=== PATIENT | female | born 1950 | race Caucasian/White ===

== ENCOUNTER 2020-01-23 12:34 | Inpatient (IN) | payer BC, OTHER ==
[~2020-01-23] VITALS: Ht 157.5 cm; Wt 50.8 kg
[2020-01-23 13:07] LABS: BASOPHILS % (AUTO) 0.7 % (0.0-2.0); EOSINOPHILS % (AUTO) 0.5 % (0.0-7.0); HEMATOCRIT 44.6 % (31.2-41.9); HEMOGLOBIN 14.8 g/dL (10.9-14.3); LYMPHOCYTES # (AUTO) 0.9 K/uL (20.0-40.0); MEAN CORPUSCULAR HEMOGLOBIN 29.9 uug (24.7-32.8); MEAN CORPUSCULAR HGB CONC 33 g/dL (32.3-35.6); MEAN CORPUSCULAR VOLUME 90.1 fL (75.5-95.3); MONOCYTES # (AUTO) 0.5 K/uL (2.0-10.0); MONOCYTES % (AUTO) 7.4 % (0.0-11.0); NEUTROPHILS # (AUTO) 5.1 K/uL (1.8-8.9); NEUTROPHILS % (AUTO) 77.4 % (38.5-71.5); PLATELET COUNT (AUTO) 218 K/uL (179-408); RED BLOOD CELL COUNT(AUTO) 4.95 MIL/uL (3.63-4.92); WHITE BLOOD COUNT (AUTO) 6.6 K/uL (3.8-11.8)
[2020-01-23] MEDS ORDERED: MULT-451 PO (13:10)
[2020-01-23 13:15] LABS: CARBON DIOXIDE 27 mmol/L (21-32); CHLORIDE 109 mmol/L (98-107); CREATININE 0.9 mg/dL (0.6-1.3); GLUCOSE 108 mg/dL (74-106); POTASSIUM 3.4 mmol/L (3.5-5.1); UREA NITROGEN, BLOOD 12 mg/dL (7-18)
[2020-01-23] MEDS ORDERED: ALBU6.7H9 INH (13:15)
[2020-01-23 13:29] LABS: ALKALINE PHOSPHATASE 94 U/L (50-136); ASPARTATE AMINOTRANSFERASE 30 U/L (15-37); BILIRUBIN,DIRECT 0.2 mg/dL (0.0-0.2); TOTAL PROTEIN, SERUM 7.3 g/dL (6.4-8.2)
--- NOTE | 2020-01-23 13:30 | NUR ---
PT AMBULATED TO BATHROOM WITH STEADY GAIT. URINE SAMPLE SENT. HOSPITAL SANDWICH PROVIDED FOR PT. PT EATING WITH GOOD APETITE.
[2020-01-23 13:32] LABS: ETHANOL < 3 MG/DL (0-0)
[2020-01-23 13:33] LABS: ACETAMINOPHEN < 2.0 ug/mL (10-30); ALANINE AMINOTRANSFERASE < 6 U/L (14-59)
[2020-01-23 14:09] LABS: *AMPHETAMINE, URINE NEGATIVE (NEGATIVE); *BARBITURATE, URINE NEGATIVE (NEGATIVE); *CANNABINOID, URINE NEGATIVE (NEGATIVE); *COCCAINE, URINE NEGATIVE (NEGATIVE); *OPIATE, URINE NEGATIVE (NEGATIVE); *PHENCYCLIDINE SCREEN,URINE NEGATIVE (NEGATIVE)
[2020-01-23 14:33] LABS: *BILIRUBIN,URIN NEGATIVE (NEGATIVE); *CLARITY,URINE CLOUDY (CLEAR); *COLOR,URINE YELLOW (YELLOW); *KETONES,URINE 2+ (NEGATIVE); *UROBILINOGEN,URINE 0.2 E.U./dl (NORMAL); LEUKOCYTE ESTERASE ,URINE 1+ (NEGATIVE); NITRITE, URINE POSITIVE (NEGATIVE); UGLUCOSE NEGATIVE (NEGATIVE)
[2020-01-23 14:45] LABS: *BLOOD, URINE TRACE (NEGATIVE)
[2020-01-23 14:48] LABS: BACTERIA,URINE MANY /HPF (NONE SEEN); SQUAMOUS EPITHELIAL CELL,UR FEW /HPF (NONE SEEN); WBC,URINE 20-50 /HPF (0-3)
[2020-01-23] MEDS ORDERED: NITROFURANTOIN/NITROFURAN MAC 100 MG CAPSULE PO ONE (16:45)
--- NOTE | 2020-01-23 17:07 | NUR ---
transfered pt to [facility] in stable condition. pt remained calm/resting the whole er stay.
[2020-01-23 17:15] VITALS: BP 158/94
--- NOTE | 2020-01-23 17:30 | NUR ---
Pt report received from FIRE MANAGEMENT TECHNICIAN at 1645hr. Pt arrived on the unit via gurney. Pt assessed, no acute distress, denies pain, no SOB evident. VS stable 158/94, 101, 18 RR, 99 temp, denies pain. Pt refused photo of her face for chart. Physical assessment done, no skin integrity issues to report, and Pt assisted to change into gown. Personal belongings accounted for and collected for contraband. Pt's son, Thien, identified as Pt's number one point of contact and notified of transfer, updated on Pt status. Pt oriented to the unit and room 140B. All comfort and safety needs attended to at this time. Will continue to monitor and endorse to third shift lieutenant nurse.
[2020-01-23] MEDS ORDERED: NITROFURANTOIN/NITROFURAN MAC 100 MG CAPSULE ONE (17:33)
[2020-01-23] MEDS ORDERED: MAGNESIUM HYDROXIDE 30 ML LIQUID UDC PO PRN (17:45)
[2020-01-23] MEDS ORDERED: MAG HYDROX/AL HYDROX/SIMETH 30 ML LIQUID UDC PO PRN (17:45)
[2020-01-23] MEDS ORDERED: ACETAMINOPHEN 325 MG TABLET PO PRN (17:45)
[2020-01-23 20:10] VITALS: BP 156/83
[2020-01-23] MEDS: MULTIVIT, IRON, MIN NO. 8, FA TABLET PO SCH (22:00)
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
[2020-01-23] MEDS ORDERED: ALBUTEROL SULFATE 2.5 MG/3 ML NEBU NEB PRN (22:30)
--- NOTE | 2020-01-24 06:00 | NUR ---
slept 7 hours. continues to sleep. no distress noted.
[2020-01-24 07:32] LABS: BILIRUBIN,TOTAL 1.1 mg/dL (0.2-1.0); POTASSIUM 3.3 mmol/L (3.5-5.1); TOTAL PROTEIN, SERUM 7.2 g/dL (6.4-8.2)
[2020-01-24 07:51] VITALS: BP 147/84
[2020-01-24] MEDS: MULTIVIT, IRON, MIN NO. 8, FA TABLET PO SCH (08:41)
--- NOTE | 2020-01-24 10:26 | NUR ---
HAYLEE ZHANG Note: HAYLEE spoke with Yaa director case at [facility] ([phone]) patient is authorized from 01/23/2020 - 01/30/2020. Review due on 01/30/2020. Waiting for authorization #. Addendum: 01/27/20 at 1103 by NELSON THOMAS Trang # [id number]
[2020-01-24] MEDS ORDERED: DEXTROSE 50% 50 ML DISP.SYRIN IV PRN (11:45)
[2020-01-24] MEDS ORDERED: POTASSIUM CHLORIDE 20 MEQ TAB.PRT.SR PO ONE (11:45)
[2020-01-24] MEDS: METFORMIN HCL 500 MG TABLET PO SCH ×2 (12:12→17:01)
[2020-01-24] MEDS: METOPROLOL TARTRATE 25 MG TABLET PO SCH ×2 (12:13→21:00)
[2020-01-24 12:20] LABS: THYROID STIMULATING HORMONE 2.227 mIU/mL (0.358-3.740)
[2020-01-24] MEDS: CEphaleXIN 500 MG CAPSULE PO SCH ×3 (13:38→22:00)
--- NOTE | 2020-01-24 15:13 | NUR ---
Patient refuse cephalexin 500mg for UTI Patient noted being suspicious with medication. Patient verbalize that she donot like side effects of it despite of encouragement and education. Given explanation to patient. MD aware. Daughter notified. not in distress. Patient seen and examined by MD Blunt via webcam. no new medication prescribe yet. will continue monitor for safety.
[2020-01-24 15:47] VITALS: BP 155/69
[2020-01-24] MEDS: BLOOD SUGAR DIAGNOSTIC 1 EACH STRIP VI SCH ×2 (16:09→21:00)
[2020-01-24] MEDS: OLANZAPINE ZYDIS 5 MG TAB.RAPDIS PO SCH (16:10)
--- NOTE | 2020-01-24 16:11 | NUR ---
Patient refuse medication despite of encouragement and education.
[2020-01-24 20:25] VITALS: BP 150/78
[2020-01-24] MEDS: ATORVASTATIN 10 MG TABLET PO SCH (21:00)
--- NOTE | 2020-01-24 22:00 | NUR ---
received to care, lying in bed, pleasant upon approach. refused all medications and blood sugar check. as of 2200, she appears to be asleep. no distress noted. will continue to monitor closely.
[2020-01-25] MEDS: CEphaleXIN 500 MG CAPSULE PO SCH ×3 (06:00→21:25)
--- NOTE | 2020-01-25 06:00 | NUR ---
slept 6 hours. continues to sleep. no distress noted.
[2020-01-25] MEDS: BLOOD SUGAR DIAGNOSTIC 1 EACH STRIP VI SCH ×4 (06:24→21:00)
[2020-01-25 07:30] VITALS: BP 123/78
[2020-01-25] MEDS: METFORMIN HCL 500 MG TABLET PO SCH ×3 (08:00→17:09)
[2020-01-25] MEDS: MULTIVIT, IRON, MIN NO. 8, FA TABLET PO SCH (08:17)
[2020-01-25] MEDS: CYANOCOBALAMIN 1000 MCG/ML VIAL IM SCH (09:00)
[2020-01-25] MEDS: OLANZAPINE ZYDIS 5 MG TAB.RAPDIS PO SCH ×2 (09:00→16:33)
[2020-01-25] MEDS: METOPROLOL TARTRATE 25 MG TABLET PO SCH ×2 (09:00→21:00)
--- NOTE | 2020-01-25 09:44 | NUR ---
GPS: received patient AOx3-4, patient calm and walking around the unit, patient verbalizes understanding on why she was here, patient no distress at this time, patient selectively compliant with medication, reading labels of the medication , patient paranoid and says that shes here for psych eval and that "they are investigating her because of the residential", patient speak and understand tagalog very well , so the telegraphic typewriter installer spoke with her in the same language and patienttold that shes under investigation and rather not take medication since she is not psychotic, made aware, will continue monitor
[2020-01-25 10:39] VITALS: BP 123/78
--- NOTE | 2020-01-25 13:20 | NUR ---
HAYLEE Initial Discharge Note: Patient currently resides at home with her and daughter Keesha ([phone]) [address] [place] [address]. Patient's daughter is involved in patient's treatment and discharge plan. Patient will be returning home upon discharge. HAYLEE will continue to work with patient, family, and MD to ensure a safe and proper discharge plan.
--- NOTE | 2020-01-25 13:21 | NUR ---
SW Family Contact: Spoke with patient's daughter, Keesha ([phone]) regarding patient's treatment plan and discharge plan. Keesha shared with this procedure writer that the patient has one previous psychiatric hospitalization in 2018. Keesha stated that the patient refuses to take medications at home and is non compliant with going to see a primary doctor or psychiatrist. Keesha stated they are trying to file for conservatorship over the patient but have no been successful yet. Keesha shared they would like resources upon discharge for the patient which this procedure writer assured will be provided.
--- NOTE | 2020-01-25 15:39 | NUR ---
patient continously refused her medication, seen by Dr. Blunt via [place] [facility], patient still refusing her accucheck, and antibiotics and Psychotropic medications, even after explaining the benefits of the treatment, patient showing that shes intlligently enough to understand but still refused , filed CELESTE and 5250 hold , patient calm and no distress at this time, will continue monitor
[2020-01-25 16:00] VITALS: BP 149/83
--- NOTE | 2020-01-25 18:55 | NUR ---
Patient continuously refused all medication, paranoid and delusional, filed a RIESE patient aware, will continue monitor
[2020-01-25 20:21] VITALS: BP 150/75
[2020-01-25] MEDS: ATORVASTATIN 10 MG TABLET PO SCH (21:00)
--- NOTE | 2020-01-25 22:00 | NUR ---
received to care, isolative, but calm and pleasant upon approach. mostly stayed in her room, but was observed several times in the tv room, with peers. continues to refuse her accucheck, and all medications, including antibiotics and Psychotropic medications, even after explaining the risks and benefits of compliance vs non compliance. stated that she is not a diabetic, does not have a urinary infection, nor does she have a psychiatric problem. appears distracted by internal stimuli, but denies ant psychotic sx. as of 2199, she appears to be asleep. no distress noted. will continue to monitor closely.
[2020-01-26] MEDS: CEphaleXIN 500 MG CAPSULE PO SCH ×3 (06:00→20:56)
--- NOTE | 2020-01-26 06:00 | NUR ---
slept 5.5 hours. continues to sleep. no distress noted.
[2020-01-26] MEDS: BLOOD SUGAR DIAGNOSTIC 1 EACH STRIP VI SCH ×4 (06:22→20:54)
--- NOTE | 2020-01-26 06:33 | NUR ---
refused AM keflex, and acchcheck. she denies any sx of hypo/hyper glycemia. no distress noted.
[2020-01-26 07:30] VITALS: BP 147/69
[2020-01-26] MEDS: METFORMIN HCL 500 MG TABLET PO SCH ×2 (08:00→18:00)
[2020-01-26] MEDS: METOPROLOL TARTRATE 25 MG TABLET PO SCH ×3 (09:00→20:55)
[2020-01-26] MEDS: CYANOCOBALAMIN 1000 MCG/ML VIAL IM SCH (09:00)
[2020-01-26] MEDS: OLANZAPINE ZYDIS 5 MG TAB.RAPDIS PO SCH ×2 (09:00→17:00)
[2020-01-26] MEDS: MULTIVIT, IRON, MIN NO. 8, FA TABLET PO SCH (09:00)
[2020-01-26 16:00] VITALS: BP 133/71
--- NOTE | 2020-01-26 19:50 | NUR ---
In bed, awake, response appropriately to questions. Denies any pain/discomforts. Safety measures and fall precaution maintained. Continue care as planned.
[2020-01-26] MEDS: ATORVASTATIN 10 MG TABLET PO SCH ×2 (20:40→20:55)
--- NOTE | 2020-01-26 21:00 | NUR ---
Patient refused all due meds and accu check, claiming that that's not her medications, that we have another Ellyn in the floor, has no UTI, not diabetic so she's not taking any of those. Charge nurse made aware.
[2020-01-26 21:25] VITALS: BP 159/70
[2020-01-27] MEDS: BLOOD SUGAR DIAGNOSTIC 1 EACH STRIP VI SCH ×4 (05:44→20:51)
[2020-01-27] MEDS: CEphaleXIN 500 MG CAPSULE PO SCH ×3 (05:44→21:02)
--- NOTE | 2020-01-27 06:24 | NUR ---
Slept 7.15 hours. No complaint presented all night.Continue to refused due meds. Non-compliant to plan of care.. All needs attended and met. No significant event reported. VS stable
[2020-01-27 07:30] VITALS: BP 135/81
[2020-01-27] MEDS: METFORMIN HCL 500 MG TABLET PO SCH ×2 (08:00→17:04)
[2020-01-27] MEDS: MULTIVIT, IRON, MIN NO. 8, FA TABLET PO SCH ×2 (08:34→09:00)
--- NOTE | 2020-01-27 08:50 | NUR ---
GPS: received patient Aox2-3, patient delusional and paranoid at this time, refused medications , even the vitamins saying shes fine , patient aware of the benefits of the medication, responding to internal stimuli, will continue monitor
[2020-01-27] MEDS: OLANZAPINE ZYDIS 5 MG TAB.RAPDIS PO SCH ×3 (09:00→20:49)
[2020-01-27] MEDS: CYANOCOBALAMIN 1000 MCG/ML VIAL IM SCH (09:00)
[2020-01-27] MEDS: METOPROLOL TARTRATE 25 MG TABLET PO SCH ×2 (09:00→20:50)
[2020-01-27] MEDS: HALOPERIDOL LACTATE 5 MG/1 ML VIAL IM PRN (13:40)
[2020-01-27 16:00] VITALS: BP 146/76
--- NOTE | 2020-01-27 16:05 | NUR ---
Social Work Individual Therapy: pupil personnel worker met with pt for brief counseling to address pt's paranoid thought process. Pt continues to present as delusional. Pt unable to fully engage in session. SW encouraged pt to attend group.
--- NOTE | 2020-01-27 17:45 | NUR ---
patient on RIESE, refused oral medication, RIESE protocol given via IM , patient tolerated the medication, patient contious to be paranoid and delusional
[2020-01-27 20:32] VITALS: BP 137/73
[2020-01-27] MEDS: ATORVASTATIN 10 MG TABLET PO SCH (20:51)
--- NOTE | 2020-01-27 21:48 | NUR ---
resting in bed upon initial rounds. AAOx 3-4 Ambulatory Refused meds, but was able to take her zyprexa and lopressor. . No signs of agitation or restlessness noted. Will monitor patient. VSS. Attended to needs. VSS.
[2020-01-28] MEDS: CEphaleXIN 500 MG CAPSULE PO SCH ×3 (05:45→21:00)
--- NOTE | 2020-01-28 06:12 | NUR ---
slept well most of the shift. slept 8hours and 15 minutes. all needs attended and met. patient refused 6am Keflex and accucheck. Denies any pain nor any discomfort. VSS.
[2020-01-28] MEDS: BLOOD SUGAR DIAGNOSTIC 1 EACH STRIP VI SCH ×4 (06:43→20:56)
[2020-01-28 07:30] VITALS: BP 119/68
[2020-01-28] MEDS: METFORMIN HCL 500 MG TABLET PO SCH ×2 (08:00→17:52)
[2020-01-28] MEDS: CYANOCOBALAMIN 1000 MCG/ML VIAL IM SCH (09:00)
[2020-01-28] MEDS: METOPROLOL TARTRATE 25 MG TABLET PO SCH ×2 (09:00→20:43)
[2020-01-28] MEDS: OLANZAPINE ZYDIS 5 MG TAB.RAPDIS PO SCH ×2 (09:00→21:10)
[2020-01-28] MEDS: MULTIVIT, IRON, MIN NO. 8, FA TABLET PO SCH (09:00)
[2020-01-28] MEDS: HALOPERIDOL LACTATE 5 MG/1 ML VIAL IM PRN (09:58)
[2020-01-28 16:00] VITALS: BP 131/69
[2020-01-28 20:09] VITALS: BP 124/56
[2020-01-28] MEDS: ATORVASTATIN 10 MG TABLET PO SCH (20:56)
--- NOTE | 2020-01-28 21:15 | NUR ---
Received pt watching tv in the activity room. No acute distress noted. Denies pain/ discomfort. Noted pt to be paranoid. Denies suicidal ideation. Pt initially refusing medications. Only took lopressor. Risks and benefits explained. Offered x3. Still refused. Pt stated that she does not have any infection and she does not take any of these medications. Pt educated about the riese protocol and gave copy to the pt. Was about to give Haldol IM when pt changed her mind and stated that she will take the zyprexa. Safety measures maintained. Will continue to monitor.
[2020-01-29] MEDS: CEphaleXIN 500 MG CAPSULE PO SCH ×3 (06:00→22:00)
[2020-01-29] MEDS: BLOOD SUGAR DIAGNOSTIC 1 EACH STRIP VI SCH ×4 (06:30→20:39)
[2020-01-29 07:55] VITALS: BP 135/61
[2020-01-29] MEDS: METFORMIN HCL 500 MG TABLET PO SCH ×2 (08:00→17:20)
[2020-01-29] MEDS: CYANOCOBALAMIN 1000 MCG/ML VIAL IM SCH (08:23)
[2020-01-29] MEDS: METOPROLOL TARTRATE 25 MG TABLET PO SCH ×2 (08:24→20:28)
[2020-01-29] MEDS: MULTIVIT, IRON, MIN NO. 8, FA TABLET PO SCH (08:25)
[2020-01-29] MEDS: OLANZAPINE ZYDIS 5 MG TAB.RAPDIS PO SCH ×2 (08:25→20:29)
--- NOTE | 2020-01-29 11:27 | NUR ---
Patient awake and alert this am but very delusional with an aggressive tone. Explained to patient about the medications ordered and showed the wrappers per request. Patient denies being diabetic and refuses all Accu checks or oral medications. Patient also refuses IM B12 shots and antibiotics. Despite the teaching done on importance of treating the infection, patient refuses to believe she has a UTI. Dr. Terrazas aware. Patient also has a Riese, but was compliant with the oral psychiatric medication this am after much encouragement. Continuing to have reality based conversations, reorient patient to the situation and educate on benefits of medication compliance. Monitoring for any behavior escalation.
[2020-01-29 15:44] VITALS: BP 108/43
[2020-01-29 20:00] VITALS: BP 152/54
[2020-01-29] MEDS: ATORVASTATIN 10 MG TABLET PO SCH (20:27)
[2020-01-29] MEDS: INSULIN REGULAR, HUMAN 300 UNIT/3 ML VIAL SQ PRN (20:44)
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
[2020-01-30 07:30] VITALS: BP 129/59
[2020-01-30] MEDS: BLOOD SUGAR DIAGNOSTIC 1 EACH STRIP VI SCH ×4 (07:30→20:36)
[2020-01-30] MEDS: CYANOCOBALAMIN 1000 MCG/ML VIAL IM SCH (09:00)
[2020-01-30] MEDS: MULTIVIT, IRON, MIN NO. 8, FA TABLET PO SCH (09:22)
[2020-01-30] MEDS: METOPROLOL TARTRATE 25 MG TABLET PO SCH ×2 (09:22→20:26)
[2020-01-30] MEDS: METFORMIN HCL 500 MG TABLET PO SCH ×2 (09:22→17:10)
[2020-01-30] MEDS: OLANZAPINE ZYDIS 5 MG TAB.RAPDIS PO SCH ×2 (09:22→20:35)
--- NOTE | 2020-01-30 12:11 | NUR ---
HAYLEE UR Note: Auth # [id number] HAYLEE spoke with Yaa social work case manager at [facility] ([phone]) and provided live review of clinical updates. Authorized 01/28-01/29. Review due 01/31/20.
--- NOTE | 2020-01-30 12:53 | NUR ---
HAYLEE Family Contact: HAYLEE spoke with patient's son, Thien Barnett ([phone]) regarding patient's current condition. Thien was concerned about patient's discharge planning and he stated that they are looking for facilities for the patient after discharge. HAYLEE informed that patient is now on a Riese is slowly complying with care. HAYLEE also informed that patient' might be discharge this week and Thien will arrange for transportation.
[2020-01-30 15:35] VITALS: BP 164/76
--- NOTE | 2020-01-30 16:34 | NUR ---
Patient on reised, compliant with all medication , asked to have a shower,ambulating and safe care.
--- NOTE | 2020-01-30 19:35 | NUR ---
Received patient in room, quietly lying in her bed. Not in distress. denies any pain/discomforts at this time. No agitation/restlessness noted. Safety measures and fall precaution maintained. Continue care as planned. Addendum: 01/30/20 at 2113 by KIM MATOS RN Wrong patient.
--- NOTE | 2020-01-30 19:40 | NUR ---
Received patient awake, alert and orient x 3, calm, cooperative and pleasant at this time. Denies any pain/discomforts. Safety measures and fall precaution maintained. Continue care as planned.
[2020-01-30] MEDS: ATORVASTATIN 10 MG TABLET PO SCH (20:35)
[2020-01-30 20:39] VITALS: BP 139/68
--- NOTE | 2020-01-30 20:43 | NUR ---
BS 194mg/dl. Patient denies s/s of hyperglycemia, claiming that she had a lot of sweet intake today. Refused taking her Zyprexa , Insulin coverage and Lipitor. Charge nurse made aware.
--- NOTE | 2020-01-31 05:55 | NUR ---
Shift End Report: Slept good. VS stable. No complaint presented all night. Ambulatory with steady gait. No significant event reported all night,
[2020-01-31 06:29] VITALS: BP 146/70
--- NOTE | 2020-01-31 06:46 | NUR ---
Slept 6.0 hours.
[2020-01-31 07:30] VITALS: BP 129/49
[2020-01-31] MEDS: BLOOD SUGAR DIAGNOSTIC 1 EACH STRIP VI SCH ×4 (07:30→20:59)
[2020-01-31] MEDS: METFORMIN HCL 500 MG TABLET PO SCH ×2 (08:00→17:10)
[2020-01-31] MEDS: MULTIVIT, IRON, MIN NO. 8, FA TABLET PO SCH (08:33)
[2020-01-31] MEDS: OLANZAPINE ZYDIS 5 MG TAB.RAPDIS PO SCH ×2 (08:33→20:43)
[2020-01-31] MEDS: METOPROLOL TARTRATE 25 MG TABLET PO SCH ×2 (08:34→20:42)
[2020-01-31] MEDS: CYANOCOBALAMIN 1000 MCG/ML VIAL IM SCH (08:48)
--- NOTE | 2020-01-31 13:09 | NUR ---
HAYLEE UR Note: Auth # [id number] HAYLEE spoke with Yaa classification case manager at [facility] ([phone]) and provided live review of clinical updates. Authorized 01/30-02/01. Review due 02/02/20.
[2020-01-31 15:10] VITALS: BP 121/60
--- NOTE | 2020-01-31 15:20 | NUR ---
Social Work Individual Therapy: laceworker met with patient for brief counseling to address pt's paranoid thought process. Patient continues to remain isolative and guarded. Patient presents paranoid and refuses to engage in a meaningful conversation with this account underwriter. Patient chapa snot make eye contact with this account underwriter and physically turned the other way.
--- NOTE | 2020-01-31 16:15 | NUR ---
patient on riesed compliant with am medication, still refused for BS check,.
[2020-01-31] MEDS: ATORVASTATIN 10 MG TABLET PO SCH (20:42)
[2020-01-31 21:02] VITALS: BP 157/80
--- NOTE | 2020-01-31 22:00 | NUR ---
received to care, sitting in her room, pleasant, but guarded, upon approach. initially refused all medications, but eventually agreed to take all her PO meds, with encouragement. she continues to refuse her blood sugar check, but remains asymptomatic. as of 2199, she appears to be asleep. no distress noted. will continue to monitor closely.
--- NOTE | 2020-02-01 06:00 | NUR ---
slept 7.5 hours. continues to sleep. no distress noted.
[2020-02-01] MEDS: BLOOD SUGAR DIAGNOSTIC 1 EACH STRIP VI SCH ×4 (06:27→21:00)
--- NOTE | 2020-02-01 06:27 | NUR ---
is now awake. refused blood sugar check.
[2020-02-01 07:30] VITALS: BP 118/64
[2020-02-01] MEDS: MULTIVIT, IRON, MIN NO. 8, FA TABLET PO SCH (08:53)
[2020-02-01] MEDS: METFORMIN HCL 500 MG TABLET PO SCH ×2 (08:53→17:34)
[2020-02-01] MEDS: OLANZAPINE ZYDIS 5 MG TAB.RAPDIS PO SCH (08:54)
[2020-02-01] MEDS: METOPROLOL TARTRATE 25 MG TABLET PO SCH ×2 (08:55→21:00)
[2020-02-01] MEDS ORDERED: HALOPERIDOL LACTATE 5 MG/1 ML VIAL IM PRN (10:15)
--- NOTE | 2020-02-01 10:20 | NUR ---
HAYLEE Family Contact: SW spoke with patient's daughter Keesha Barnett ([phone]) regarding patient's current condition and discharge plans. Keesha was concerned about the patient's compliance with treatment when she return home. This financial writer stated that it is beyond our control what the patient will do when she returns home but to encourage the patient to continue to follow up with outpatient psychiatrist. Keesha stated she will come to [place] the patient on Thursday at 2pm and take her home.
--- NOTE | 2020-02-01 13:06 | NUR ---
patient on riesed compliant with am medication,patient remains paranoia and delusional about psych.medication,denies she is not belong here.
[2020-02-01 16:00] VITALS: BP 129/73
[2020-02-01] MEDS: HALOPERIDOL 5 MG TABLET PO SCH (16:21)
[2020-02-01] MEDS ORDERED: HALOPERIDOL 2 MG TABLET PO SCH (17:00)
[2020-02-01] MEDS: ATORVASTATIN 10 MG TABLET PO SCH (21:00)
[2020-02-01 21:26] VITALS: BP 135/55
--- NOTE | 2020-02-01 22:00 | NUR ---
received to care, sitting in her room, pleasant, but guarded, upon approach. refused all medications, and her blood sugar check, but remains asymptomatic. as of 2200, she appears to be asleep. no distress noted. will continue to monitor closely.
--- NOTE | 2020-02-02 06:00 | NUR ---
slept 7.0 hours total. continues to sleep. no distress noted.
[2020-02-02] MEDS: BLOOD SUGAR DIAGNOSTIC 1 EACH STRIP VI SCH ×4 (06:12→21:00)
[2020-02-02 07:30] VITALS: BP 118/63
[2020-02-02] MEDS: METFORMIN HCL 500 MG TABLET PO SCH ×2 (08:00→18:00)
[2020-02-02] MEDS: MULTIVIT, IRON, MIN NO. 8, FA TABLET PO SCH (08:29)
[2020-02-02] MEDS: INSULIN REGULAR, HUMAN 300 UNIT/3 ML VIAL SQ PRN ×3 (08:34→16:12)
[2020-02-02] MEDS: HALOPERIDOL 5 MG TABLET PO SCH ×2 (08:35→18:07)
[2020-02-02] MEDS: METOPROLOL TARTRATE 25 MG TABLET PO SCH ×2 (08:35→21:00)
[2020-02-02] MEDS ORDERED: HALOPERIDOL LACTATE 5 MG/1 ML VIAL IM PRN (13:45)
--- NOTE | 2020-02-02 15:01 | NUR ---
HAYLEE UR Note: Auth # [id number] HAYLEE spoke with Yaa binder caser at [facility] ([phone]) and provided live review of clinical updates. Authorized until tomorrow 02/03/20. Review due 02/03/20.
--- NOTE | 2020-02-02 15:01 | NUR ---
SW Family Contact: SW spoke with patient's daughter Keesha Barnett ([phone]) discussing discharge planning and emailed her patient's aftercare appointments for psychiatry and primary referrals.
[2020-02-02 16:00] VITALS: BP 141/71
--- NOTE | 2020-02-02 18:38 | NUR ---
EOS note: No significant acute changes this shift. Pt alert, responsive to verbal and tactile stimuli. Pt. pleasant but guarded. Pt non-compliant with medications including blood sugar check. Yana SONG made aware of pt. refusal of meds and blood glucose check, also made aware that pt. has been refusing keflex in the previous days. Dr. Blunt aware of pt. refusal of Haldol, MD order to increase Haldol to 5 mg as pt. remain paranoid and delusional. Pt. received Haldol 5 mg IM for refusal of PO haldol in AM. Pt. on RIESED. Pt. compliant with taking PO Haldol at dinner time after several discussion of risk and benefits of medication. Pt for possible discharge tomorrow pending authorization from her insurance per . Frequent rounding done. Safety measures in place. Will endorse to oncoming shift.
[2020-02-02 20:00] VITALS: BP 132/93
[2020-02-02] MEDS: ATORVASTATIN 10 MG TABLET PO SCH (21:00)
--- NOTE | 2020-02-03 06:00 | NUR ---
slept 6.5 hours, total. continues to sleep. no distress noted.
[2020-02-03] MEDS: BLOOD SUGAR DIAGNOSTIC 1 EACH STRIP VI SCH ×4 (06:33→20:55)
--- NOTE | 2020-02-03 06:33 | NUR ---
refused AM blood sugar check. remains asymptomatic
[2020-02-03 07:30] VITALS: BP 142/71
[2020-02-03] MEDS: METFORMIN HCL 500 MG TABLET PO SCH ×2 (08:49→18:22)
[2020-02-03] MEDS: HALOPERIDOL 5 MG TABLET PO SCH ×2 (08:49→18:23)
[2020-02-03] MEDS: MULTIVIT, IRON, MIN NO. 8, FA TABLET PO SCH (08:49)
[2020-02-03] MEDS: METOPROLOL TARTRATE 25 MG TABLET PO SCH ×2 (08:54→20:38)
--- NOTE | 2020-02-03 09:37 | NUR ---
HAYLEE UR Note: Auth # [id number] HAYLEE left a message for Emi newly assigned insurance case manager at [facility] ([phone]) and provided updated clinicals for continues stay this morning on her voicemail and waiting for a call back.
--- NOTE | 2020-02-03 09:57 | NUR ---
HAYLEE UR Note: Auth # [id number] HAYLEE spoke with Emi nath assigned rehabilitation case coordinator at [facility] ([phone]) and patient's is authorized for stay until Thursday02/06/20. Review due on 02/06/20.
--- NOTE | 2020-02-03 11:00 | NUR ---
Patient is AAO x 2, verbally able to express needs. No acute distress. Patient noted verbalizing there are many Catherines, her sisters are trying to steal her identity. Explained to patient there is only one Ellyn in the unit. Patient also paranoid about her meds stating the did not order the medications we were giving. Explained to patient the necessity and benefits of her ordered medications, Patient agreed to take meds and tolerated well. Will continue with care.
--- NOTE | 2020-02-03 12:00 | NUR ---
patient agreed for her BS to be checked.
[2020-02-03] MEDS ORDERED: HALOPERIDOL DECANOATE 50 MG/1 ML AMPUL IM ONE (14:00)
[2020-02-03 15:18] VITALS: BP 120/53
--- NOTE | 2020-02-03 16:00 | NUR ---
Explained to patient that she has an order for Haldol Decanoate IM injecation per order. Patient refused stating the " has a wrong patient. Do you know how many Catherines there are; we have 4 in this building alone, so I am not going to take it." Explained to patient that medication needs to be administered. patient agreed to take medication with a help of secutiry and assigned SUPERVISOR PARTICLEBOARD, was note combative and tolerated medication well. Patient stated " I will see you in court". Safety measures in place and will continue with care.
--- NOTE | 2020-02-03 17:43 | NUR ---
Patient administered due medications and tolerated well. Patient stays in room for most of the shift. Also noted going to dinning room and participating in activities. NO verbalization of suicidal ideations noted during shift. Independent with ADLs with monitoring. Vital signs stable for patient. No c/o pain throughout shift. Needs attended, safety measures in place and will continue with care.
--- NOTE | 2020-02-03 19:48 | NUR ---
Endorsed to PM shift.
[2020-02-03 20:16] VITALS: BP 149/60
[2020-02-03] MEDS: ATORVASTATIN 10 MG TABLET PO SCH (20:55)
--- NOTE | 2020-02-03 22:32 | NUR ---
Patient is AAO x 2, verbally able to express needs. No acute distress noted. Patient states there are many Ellyn's, that her sisters are trying to steal her identity. Patient is paranoid and suspicious about her medication stating the did not order the medications we were giving. Explained to patient the necessity and benefits of her ordered medications, Patient agreed to take only her Lopressor and not take her lipitor. No psychotropic medications scheduled for HS. Patient's accucheck 182 refused sliding scale insulin. Safe environment provided, frequent rounding, and clutter free environment. Bed in lowest position, bed locked, and bed alarm on while in bed.
[2020-02-04] MEDS: BLOOD SUGAR DIAGNOSTIC 1 EACH STRIP VI SCH ×4 (06:40→21:00)
[2020-02-04 07:30] VITALS: BP 116/76
[2020-02-04] MEDS: METFORMIN HCL 500 MG TABLET PO SCH ×2 (07:48→17:01)
--- NOTE | 2020-02-04 08:00 | NUR ---
GPS: RECEIVED PATIENT AOX3-4, PATIENT STILL SELECTIVELY COMPLIANT WITH MEDICATION, PATIENT TOOK HER PSYCH MEDICATION, NOTED SOME PARANOI AND DELUSION REGARDING HER FAMILY MATTER, REDIRECTABLE, QUIET CALM AND COOPERATIVE, WILL CONTINUE MONITOR
[2020-02-04] MEDS: HALOPERIDOL 5 MG TABLET PO SCH ×2 (08:42→16:13)
[2020-02-04] MEDS: MULTIVIT, IRON, MIN NO. 8, FA TABLET PO SCH (08:42)
[2020-02-04] MEDS: METOPROLOL TARTRATE 25 MG TABLET PO SCH ×2 (09:00→21:15)
[2020-02-04 16:00] VITALS: BP 155/78
--- NOTE | 2020-02-04 18:11 | NUR ---
patient still intrusive and paranoid, patient pacing in hallway, however compliant with medication will continue monitor
--- NOTE | 2020-02-04 19:50 | NUR ---
PATIENT ALERT ORIENTED, NO COMPLAIN OF PAIN. PATIENT AT TV ROOM SOCIALIZING WITH OTHER PATIENT, PATIENT CALM AT THIS TIME, CONT TO MONITOR.
[2020-02-04 20:42] VITALS: BP 150/69
[2020-02-04] MEDS: ATORVASTATIN 10 MG TABLET PO SCH (21:00)
--- NOTE | 2020-02-04 21:00 | NUR ---
PATIENT IN HER ROOM, REFUSED BLOOD SUGAR TESTING STATED "MY SUGAR IS FINE, I DON'T WANT TO BE POOKED", PATIENT REFUSED LIPITOR STATED "MY CHOLESTEROL IS FINE... I DON'T WANT TO TAKE IT. WILL CONT TO MONITOR.
[2020-02-05] MEDS: BLOOD SUGAR DIAGNOSTIC 1 EACH STRIP VI SCH ×4 (06:28→21:21)
--- NOTE | 2020-02-05 06:33 | NUR ---
PATIENT ASLEEP BUT AROUSABLE, PATIENT SLEPT MOST OF THE NIGHT, SLEPT FOR 9 HRS, CONT TO MONITOR.
[2020-02-05 07:30] VITALS: BP 147/81
[2020-02-05] MEDS: HALOPERIDOL 5 MG TABLET PO SCH ×2 (08:29→17:16)
[2020-02-05] MEDS: MULTIVIT, IRON, MIN NO. 8, FA TABLET PO SCH (08:29)
[2020-02-05] MEDS: METFORMIN HCL 500 MG TABLET PO SCH ×2 (08:29→17:17)
[2020-02-05] MEDS: METOPROLOL TARTRATE 25 MG TABLET PO SCH ×2 (08:30→21:21)
--- NOTE | 2020-02-05 14:11 | NUR ---
patient AOx3, patient paranoid, on RIESE , patient selectively compliant with meds, but took psych medication as ordered
[2020-02-05 15:30] VITALS: BP 124/56
[2020-02-05] MEDS: BENZTROPINE MESYLATE 0.5 MG TABLET PO SCH (17:16)
[2020-02-05 20:24] VITALS: BP 146/65
[2020-02-05] MEDS: ATORVASTATIN 10 MG TABLET PO SCH (21:00)
[2020-02-06] MEDS: BLOOD SUGAR DIAGNOSTIC 1 EACH STRIP VI SCH ×2 (06:49→11:30)
[2020-02-06 07:30] VITALS: BP 131/60
[2020-02-06] MEDS: METFORMIN HCL 500 MG TABLET PO SCH (08:00)
[2020-02-06] MEDS: HALOPERIDOL 5 MG TABLET PO SCH (08:15)
[2020-02-06] MEDS: BENZTROPINE MESYLATE 0.5 MG TABLET PO SCH (08:15)
[2020-02-06] MEDS: MULTIVIT, IRON, MIN NO. 8, FA TABLET PO SCH (08:15)
[2020-02-06 08:16] VITALS: BP 131/60
[2020-02-06] MEDS: METOPROLOL TARTRATE 25 MG TABLET PO SCH (08:16)
--- NOTE | 2020-02-06 09:12 | NUR ---
Discharge Note: Patient will be returning home [address] [place] [address]. Patients daughter, Keesha ([phone]) will be providing transportation for the patient today at 2pm and taking her back home. Patients son, Thien Barnett ([phone]) is also aware and agreeable with discharge plans. Patient is aware and agreeable with discharge plans. Patient presents alert and oriented times 3. Patient denies suicidal or homicidal ideation. Patient presents with appropriate mood and congruent affect. Patient is referred for outpatient psychiatry services by Dr. Epstein at [address] [address] ([phone]) and has an appointment scheduled on Thursday February 13, 2020 at 1:45pm. Patent is referred to [facility] for primary care physician follow ups [address] [place] [address] ([phone]) and has an appointment scheduled on Saturday February 08, 2020 at 11:30am.
--- NOTE | 2020-02-06 14:58 | NUR ---
Discharged Patient home with family at 2;30 pm. all personal belonging returned to patient, patient is compliant with all medication,denies any SI/HI.will continue follow up with PCP and outside psychiatrist.
--- NOTE | 2020-02-08 09:05 | NUR ---
HAYLEE UR Note: Auth # [id number] HAYLEE faxed Alex insurance case manager at [facility] (ph: [phone] fax: [phone]) patient's discharge summary.
== END 2020-02-06 14:30 | disposition home or self-care (01) | DRG 885 ==
LOC: ER 12:34 → GPS 17:02
PROVIDERS: ADMIT Psychiatry & Neurology Psychiatry; ATTEND Internal Medicine
DX: F29 Unspecified psychosis not due to a substance or known physiological condition (principal); N39.0 Urinary tract infection, site not specified; J45.909 Unspecified asthma, uncomplicated; B96.20 Unspecified Escherichia coli [E. coli] as the cause of diseases classified elsewhere; E11.9 Type 2 diabetes mellitus without complications; E78.5 Hyperlipidemia, unspecified; E87.6 Hypokalemia; F03.90 Unspecified dementia, unspecified severity, without behavioral disturbance, psychotic disturbance, mood disturbance, and anxiety; I10 Essential (primary) hypertension; Z91.19 Patient's noncompliance with other medical treatment and regimen; F20.9 Schizophrenia, unspecified; Z79.84 Long term (current) use of oral hypoglycemic drugs
CPT/HCPCS: 36415; 80307; 80329; 82652; 84443; 85025; 87077; 87086; 93005; A4663; G0480; G0480-TC; J1630; J1631; J1815; J3420